=== PATIENT | male | born 1970 | race Caucasian/White ===

== ENCOUNTER 2021-10-11 12:04 | Emergency (ER) | payer MEDICAID ==
[~2021-10-11] VITALS: Ht 170.2 cm; Wt 82.0 kg
[2021-10-11] MEDS ORDERED: HYDROCODONE/ACETAMINOPHEN 5/325MG TABLET PO STA (12:24)
[2021-10-11] MEDS ORDERED: HYDR-4001 PO (14:14)
[2021-10-11 15:19] VITALS: BP 142/86
== END 2021-10-11 15:22 | disposition home or self-care (01) ==
LOC: ER 12:11
DX: S93.492A Sprain of other ligament of left ankle, initial encounter (principal); R03.0 Elevated blood-pressure reading, without diagnosis of hypertension; R73.03 Prediabetes; X58.XXXA Exposure to other specified factors, initial encounter; Y93.01 Activity, walking, marching and hiking; Y92.018 Other place in single-family (private) house as the place of occurrence of the external cause
CPT/HCPCS: 29515; 73610; 73630; 99284